=== PATIENT | male | born 1970 | race Hispanic/Latino ===

== ENCOUNTER 2022-12-22 10:16 | Day surgery (SDC) | payer OTHER ==
[~2022-12-22] VITALS: Ht 162.6 cm; Wt 77.1 kg
[~2022-12-22 10:16] MED LIST: MULTI VIT PO
[2022-12-22] MEDS ORDERED: PERCOCET 5/325M1 TAB PO (12:09)
[2022-12-22 13:56] VITALS: BP 119/76
== END 2022-12-22 13:35 | disposition home or self-care (01) ==
LOC: ORM 10:16
PROVIDERS: ATTEND Surgery
DX: K40.90 Unilateral inguinal hernia, without obstruction or gangrene, not specified as recurrent (principal)
CPT/HCPCS: C1781; J0690; J1100; J2710